=== PATIENT | female | born 1990 | race Two or more races ===

== ENCOUNTER 2021-01-12 10:05 | Outpatient (CLI) | payer OTHER | END 2021-01-12 11:00 | disposition home or self-care (01) | LOC: RAD 10:05 | PROVIDERS: ATTEND Obstetrics & Gynecology | DX: R10.2 Pelvic and perineal pain (principal); N91.2 Amenorrhea, unspecified ==

== ENCOUNTER 2024-06-24 20:29 | Emergency (ER) | payer OTHER ==
[~2024-06-24] VITALS: Ht 167.6 cm; Wt 113.4 kg
[2024-06-24] MEDS ORDERED: PROTONIX40 MG PO (22:21)
[2024-06-24] MEDS ORDERED: FAMOTIDINE/PF 20 MG in 0.9 % SODIUM CHLORIDE 8 ML IV PUSH STA (22:46)
[2024-06-24] MEDS ORDERED: 0.9 % SODIUM CHLORIDE 1,000 ML IV SCH (23:00)
[2024-06-24] MEDS ORDERED: METHYLPREDNISOLONE SOD SUCC 125 MG VIAL IV ONE (23:00)
[2024-06-24] MEDS ORDERED: DIPHENOXYLATE HCL/ATROPINE 1 UDTAB TABLET PO ONE (23:00)
[2024-06-24] MEDS ORDERED: ONDANSETRON HCL 2 MG/ML VIAL IV ONE (23:00)
[2024-06-24 23:48] LABS: HEMATOCRIT 30.7 % (36.0-45.00); HEMOGLOBIN 9.3 g/dL (12.0-15.00); MEAN CORPUSCULAR HEMOGLOBIN 19.3 pg (27.00-32.0); MEAN CORPUSCULAR HGB CONC 30.4 g/dl (32.0-36.0); PLATELET COUNT 355 K/uL (150-450); RED BLOOD COUNT 4.83 M/uL (4.00-6.00); RED CELL DISTRIBUTION WIDTH 18.6 % (11.5-14.5)
[2024-06-25 00:01] LABS: ALBUMIN 3.8 gm/dL (3.4-5.0); BILIRUBIN TOTAL 0.38 mg/dL (0.3-1.2); BILIRUBIN,CONJUGATED 0.12 mg/dL (0.0-0.2); BILIRUBIN,UNCONJUGATED 0.26 mg/dL (0.0-0.6); CALCIUM 9.2 mg/dL (8.5-10.1); CREATININE SERUM 0.76 mg/dL (0.55-1.02); GFR 88.19; GLOBULINA 4.4 G/DL (2.4-3.5); POTASSIUM 4.08 mEq/L (3.5-5.1); TOTAL PROTEIN 8.2 gm/dL (6.4-8.2)
[2024-06-25 00:05] LABS: MEAN CELL VOLUME 63.6 fL (80.00-100.00)
[2024-06-25] MEDS ORDERED: 0.9 % SODIUM CHLORIDE 1,000 ML IV STA (02:51)
== END 2024-06-25 02:51 | disposition home or self-care (01) ==
LOC: ER 20:31
PROVIDERS: General Practice
DX: K52.9 Noninfective gastroenteritis and colitis, unspecified (principal); R11.2 Nausea with vomiting, unspecified; R11.10 Vomiting, unspecified